=== PATIENT | female | born 1960 ===

== ENCOUNTER 2016-11-11 14:30 | Emergency (ER) | payer OTHER ==
[~2016-11-11] VITALS: Ht 162.6 cm; Wt 66.5 kg
[2016-11-11 14:34] VITALS: Ht 162.6 cm; Wt 66.5 kg
--- NOTE | 2016-11-11 15:15 | ERA ---
ER Documentation Chief Complaint Date/Time DATE: 11/11/16 TIME: 15:15 Chief Complaint cough x 2 weeks HPI The patient is a 56-year-old female, presenting to the ER because of intermittent dry cough for the last 2 weeks. She just came back from [facility] about 3 days ago. She has subjective fever, nasal congestion, nasal discharge, denies neck pain, chest pain, dyspnea, abdominal pain, vomiting, diarrhea, dysuria. She does not smoke, drink Past medical history: Asthma Past surgical history: None ROS All systems reviewed and are negative except as per history of present illness. Medications Home Meds Active Scripts Azithromycin* (Zithromax*) 250 Mg Tablet, 250 MG PO .ZPACK DIRECTED, #6 TAB TAKE 500 MG (2 TABS) THE FIRST DAY THEN 250 MG (1 TAB) DAYS 2-5 Prov:CHEYANNE MERCHANT MD 11/11/16 Albuterol Sulfate* (Proair HFA*) 8.5 Gm Hfa.aer.ad, 2 PUFF INH Q4, #1 INHALER Prov:CHEYANNE MERCHANT MD 11/11/16 Prednisone* (Prednisone*) 20 Mg Tab, 60 MG PO DAILY for 5 Days, TAB Prov:CHEYANNE MERCHANT MD 11/11/16 Guaifenesin-Codeine Phosphate* (Robitussin* AC) 5 Ml Syrup, 10 ML PO Q6H Y for COUGH, #120 ML Prov:CHEYANNE MERCHANT MD 11/11/16 Allergies Allergies: Coded Allergies: No Known Allergy (Unverified , 11/11/16) Physical Exam Vitals Vital Signs Date Time Temp Pulse Resp B/P Pulse Ox O2 Delivery O2 Flow Rate FiO2 11/11/16 14:34 98.1 81 20 126/58 98 Physical Exam Const: No acute distress. Head: Atraumatic. Eyes: Normal Conjunctiva. ENT: Normal External Ears, Nose and Mouth. Bilateral tympanic membranes and oropharynx are within normal limits Neck: Full range of motion. No meningismus. Resp: Clear to auscultation bilaterally. Cardio: Regular rate and rhythm, no murmurs. Abd: Soft, non distended, normal bowel sounds, non tender. Skin: No petechiae or rashes. Back: No midline or flank tenderness. Ext: No cyanosis, or edema. Neur: Awake and alert. No focal deficit Psych: Normal Mood and Affect. Procedures/MDM MEDICAL MAKING DECISION: The patient is a 56-year-old female, presenting with acute asthma bronchitis. She is advised to continue her Qvar. The differential diagnoses considered include but are not limited to asthma, COPD, pneumonia, pulmonary embolus, pleural effusion, congestive heart failure. Departure Diagnosis: Primary Impression: Bronchitis Additional Impression: Viral syndrome Condition: Good Comments She was discharged with albuterol MDI, Z-Tello, prednisone, Phenergan with codeine I discussed the findings with the patient. I advised the patient to follow-up with the primary physician in about 1-2 days, sooner if needed and return if any concern. I discussed the findings with the patient. I advised the patient to follow-up with the primary physician in about 1-2 days, sooner if needed and return if any concern. CHEYANNE MERCHANT MD Nov 11, 2016 15:15
[2016-11-11] MEDS ORDERED: UDROBAC PO (15:39)
[2016-11-11] MEDS ORDERED: AZIT250T94 PO (15:39)
[2016-11-11] MEDS ORDERED: ALBU8.5H3 INH (15:39)
[2016-11-11] MEDS ORDERED: PRED20TA PO (15:39)
== END 2016-11-11 17:34 | disposition home or self-care (01) ==
LOC: FTE 14:30
DX: J20.9 Acute bronchitis, unspecified (principal); B34.9 Viral infection, unspecified; J45.909 Unspecified asthma, uncomplicated
CPT/HCPCS: 99284